=== PATIENT | female | born 1985 | race Caucasian/White ===

== ENCOUNTER 2016-12-10 18:51 | Inpatient (IN) | payer OTHER ==
[~2016-12-10] VITALS: Ht 177.8 cm; Wt 121.1 kg
[~2016-12-10 18:51] MED LIST: BACTRIM,SEPT1 TABLET PO; CLEOCIN300 MG PO; ENBREL50 MG/1 ML SC; FLAGYL500 MG PO; KEFLEX500 MG PO; MOTRIN800 MG PO; NAPROSYN500 MG PO; NOHOMEMEDS; PERCOCET 5/31 TABLET PO; PERCOCET 7.51 TABLET PO; ZOFRAN ODT4 MG PO
[2016-12-10 19:32] LABS: EOSINOPHIL COUNT 0.1 K/uL (0-0.3); HEMATOCRIT 43.3 % (36.0-46.0); IMMATURE GRANULOCYTE (%) 0.2 % (0.0-0.7); IMMATURE GRANULOCYTE COUNT 0.2 K/uL; LYMPHOCYTE COUNT 2.5 K/uL (1.0-2.8); MCH 29.8 PG (29.0-34.0); MCHC 33.9 G/DL (30.0-36.0); MCV 87.7 FL (83-99); MEAN PLAT.VOLUME 9.9 uM^3 (9.5-12.4); MONOCYTE (%) 7.5 % (3-12); MONOCYTE COUNT 0.8 K/uL (0-0.8); NEUTROPHIL (%) 66.1 % (45-76); NEUTROPHIL COUNT 6.6 K/uL (1.8-6.4); PLATELET COUNT 261 K/uL (156-360); RBC DIS.WIDTH-CV 13.8 % (11.8-14.6); RBC DIS.WIDTH-SD 43.4 % (39-53); RED BLOOD COUNT 4.94 M/uL (3.80-5.20)
[2016-12-10 19:40] LABS: CHLORIDE 106 mEq/L (99-109); POTASSIUM 3.9 mEq/L (3.7-5.4); SODIUM 140 mEq/L (136-147)
[2016-12-10 19:42] LABS: GLUCOSE 117 mg/dL (70-99)
[2016-12-10 19:43] LABS: ANION GAP 11 MEQ/L (2-14)
[2016-12-10 19:44] LABS: TOTAL BILIRUBIN 0.4 mg/dL (0.0-1.0)
[2016-12-10 19:46] LABS: ALKALINE PHOSPHATASE 89 IU/L (3-129); D-DIMER ELISA 1.69 mg/L FEU (< 0.57); GFR ESTIMATE (CALCULATED) > 59 mL/min/
[2016-12-10 19:47] LABS: UREA NITROGEN (BUN) 13 mg/dL (9-23)
[2016-12-10 19:49] LABS: LIPASE 14 U/L (1.0-51.0)
[2016-12-10 19:57] LABS: QUANTITATIVE HCG < 4.0 MIU/ML; TROP-I INTERPRETATION NEGATIVE; TROPONIN-I < 0.01 ng/mL (0.0-0.30)
[2016-12-10 23:44] LABS: ADD MIUA? YES; BILIRUBIN NEGATIVE; BLOOD SMALL; COLOR YELLOW ((YELLOW)); GLUCOSE (STRIP) NEGATIVE; KETONES 5; LEUKOCYTES NEGATIVE; NITRITE NEGATIVE; PROTEIN (STRIP) 30; UROBILINOGEN 0.2 MG/DL (0.2-1.0)
[2016-12-10 23:48] LABS: BACTERIA NONE SEEN /HPF; EPITHELIAL CELLS 1+ /HPF; MUCUS TRACE /LPF; RED BLOOD CELLS 0-5 /HPF (0-5); UCUL ADDED? NO; WHITE BLOOD CELLS 0-5 /HPF (0-5)
[2016-12-10 23:57] LABS: AMPHETAMINE NEGATIVE (500 ng/mL); BARBITURATES NEGATIVE (200 ng/mL); BENZODIAZEPINES NEGATIVE (150 ng/mL); COCAINE NEGATIVE (150 ng/mL); INTERNAL CONTROLS VALID? YES; METHADONE PRESUMPTIVE POSITIVE (200 ng/mL); METHAMPHETAMINE NEGATIVE (500 ng/mL); OPIATES (MORPHINE) NEGATIVE (100 ng/mL); OXYCODONE NEGATIVE (100 ng/mL); PHENCYCLIDINE NEGATIVE (25 ng/mL); PROPOXYPHENE NEGATIVE (300 ng/mL); THC CANNABINOIDS NEGATIVE (50 ng/mL); TRICYCLIC ANTIDEPRESSANTS NEGATIVE (300 ng/mL)
[2016-12-11] VITALS (7 sets, daily range): BP systolic 116–144; BP diastolic 62–89
[2016-12-11] MEDS ORDERED: MOBIC15 MG PO (00:07)
[2016-12-11] MEDS ORDERED: TRIAMCINOLONE A15 GM TP (00:08)
[2016-12-11] MEDS ORDERED: CLOBETASOL PROP60 GM TP (00:08)
[2016-12-11] MEDS ORDERED: METHADONE 22 MG/1 ML PO (00:09)
[2016-12-11 00:17] LABS: INFLUENZA A VIRAL ANTIGEN NEGATIVE; INFLUENZA B VIRAL ANTIGEN NEGATIVE
[2016-12-11 00:42] LABS: BASE EXCESS -0.8 mEq/L (-3 to +3); BICARBONATE 23.5 mEq/L (22-26); CARBOXY HGB 2.6 % (0-5); COMMENTS - BLOOD GASES A+C+; DEVICE HHFNC; FI02 100 %; METHEMOGLOBIN 1.2 % (0-1.5); O2 FLOW 30 L/MIN; PCO2 37 mm Hg (35-45); PO2 208 mm Hg (80-100); SITE LR; pH 7.41 (7.35-7.45)
[2016-12-11 02:00] LABS: MAGNESIUM 2.2 mg/dL (1.3-2.7)
[2016-12-11 08:09] LABS: ANION GAP 10 MEQ/L (2-14); CHLORIDE 102 MEQ/L (99-109); GFR ESTIMATE (CALCULATED) > 59 mL/min/; GLUCOSE 118 mg/dL (70-99); MAGNESIUM 1.9 mg/dl (1.3-2.7); POTASSIUM 3.6 MEQ/L (3.7-5.4); SAMPLE HEMOLYSIS CHECK 0; SAMPLE ICTERIC CHECK 0; SAMPLE LIPEMIA CHECK 0; SODIUM 137 MEQ/L (136-147); UREA NITROGEN (BUN) 8 mg/dL (9-23)
[2016-12-11 09:39] LABS: TROP-I INTERPRETATION NEGATIVE; TROPONIN-I < 0.01 ng/mL (0.0-0.30)
[2016-12-12] VITALS (7 sets, daily range): BP systolic 112–141; BP diastolic 62–89
[2016-12-12 09:36] LABS: HEMATOCRIT 45.3 % (36.0-46.0); MCH 28.6 PG (29.0-34.0); MCHC 31.8 G/DL (30.0-36.0); MCV 90.1 FL (83-99); MEAN PLAT.VOLUME 9.7 uM^3 (9.5-12.4); PLATELET COUNT 246 K/uL (156-360); RBC DIS.WIDTH-SD 45.4 % (39-53); RED BLOOD COUNT 5.03 M/uL (3.80-5.20)
[2016-12-12 10:25] LABS: ANION GAP 9 MEQ/L (2-14); CHLORIDE 101 MEQ/L (99-109); GFR ESTIMATE (CALCULATED) > 59 mL/min/; GLUCOSE 142 mg/dL (70-99); SAMPLE HEMOLYSIS CHECK 0; SAMPLE ICTERIC CHECK 0; SAMPLE LIPEMIA CHECK 0; SODIUM 139 MEQ/L (136-147); UREA NITROGEN (BUN) 12 mg/dL (9-23)
[2016-12-13 03:30] VITALS: BP 117/69
[2016-12-13 06:43] LABS: HEMATOCRIT 45.5 % (36.0-46.0); MCH 30.3 PG (29.0-34.0); MCHC 33.4 G/DL (30.0-36.0); MCV 90.8 FL (83-99); PLATELET COUNT 251 K/uL (156-360); RBC DIS.WIDTH-CV 13.9 % (11.8-14.6); RBC DIS.WIDTH-SD 45.6 % (39-53); RED BLOOD COUNT 5.01 M/uL (3.80-5.20); WHITE BLOOD COUNT 7.6 K/uL (4.1-10.2)
[2016-12-13 07:07] LABS: ANION GAP 10 MEQ/L (2-14); CHLORIDE 101 MEQ/L (99-109); GFR ESTIMATE (CALCULATED) > 59 mL/min/; GLUCOSE 122 mg/dL (70-99); POTASSIUM 4.3 MEQ/L (3.7-5.4); SAMPLE HEMOLYSIS CHECK 0; SAMPLE ICTERIC CHECK 0; SAMPLE LIPEMIA CHECK 0; SODIUM 138 MEQ/L (136-147); UREA NITROGEN (BUN) 17 mg/dL (9-23)
[2016-12-13 07:13] VITALS: BP 132/82
[2016-12-13 11:57] VITALS: BP 110/81
[2016-12-13 16:10] VITALS: BP 119/50
[2016-12-13 20:29] VITALS: BP 120/82
[2016-12-14] VITALS (7 sets, daily range): BP systolic 106–125; BP diastolic 65–83
[2016-12-14 07:22] LABS: ANION GAP 6 MEQ/L (2-14); CHLORIDE 99 MEQ/L (99-109); GFR ESTIMATE (CALCULATED) > 59 mL/min/; GLUCOSE 119 mg/dL (70-99); POTASSIUM 4.5 MEQ/L (3.7-5.4); SAMPLE HEMOLYSIS CHECK 0; SAMPLE ICTERIC CHECK 0; SAMPLE LIPEMIA CHECK 0; SODIUM 137 MEQ/L (136-147); UREA NITROGEN (BUN) 17 mg/dL (9-23)
[2016-12-14 07:24] LABS: HEMATOCRIT 50.3 % (36.0-46.0); MCH 29.3 PG (29.0-34.0); MCHC 32.4 G/DL (30.0-36.0); MCV 90.3 FL (83-99); MEAN PLAT.VOLUME 9.8 uM^3 (9.5-12.4); PLATELET COUNT 287 K/uL (156-360); RBC DIS.WIDTH-CV 13.8 % (11.8-14.6); RBC DIS.WIDTH-SD 45.2 % (39-53); RED BLOOD COUNT 5.57 M/uL (3.80-5.20); WHITE BLOOD COUNT 10.8 K/uL (4.1-10.2)
[2016-12-15 03:57] VITALS: BP 108/65
[2016-12-15 06:48] LABS: HEMATOCRIT 50.7 % (36.0-46.0); MCH 28.9 PG (29.0-34.0); MCV 90.5 FL (83-99); RBC DIS.WIDTH-CV 13.8 % (11.8-14.6); RBC DIS.WIDTH-SD 45.2 % (39-53); WHITE BLOOD COUNT 10.3 K/uL (4.1-10.2)
[2016-12-15 07:13] LABS: ANION GAP 11 MEQ/L (2-14); CHLORIDE 101 MEQ/L (99-109); GFR ESTIMATE (CALCULATED) > 59 mL/min/; GLUCOSE 129 mg/dL (70-99); POTASSIUM 4.5 MEQ/L (3.7-5.4); SAMPLE HEMOLYSIS CHECK 0; SAMPLE ICTERIC CHECK 0; SAMPLE LIPEMIA CHECK 0; SODIUM 139 MEQ/L (136-147); UREA NITROGEN (BUN) 16 mg/dL (9-23)
[2016-12-15 08:54] LABS: PLATELET COUNT UNABLE TO REPORT K/uL (156-360)
[2016-12-15 09:14] VITALS: BP 128/81
[2016-12-15 14:00] VITALS: BP 108/54
[2016-12-15 16:02] VITALS: BP 128/85
[2016-12-15 19:30] VITALS: BP 136/95
[2016-12-15 23:53] VITALS: BP 113/71
[2016-12-16 04:18] VITALS: BP 118/68
[2016-12-16 09:15] VITALS: BP 169/104
[2016-12-16 09:23] LABS: ANION GAP 9 MEQ/L (2-14); CHLORIDE 101 MEQ/L (99-109); GFR ESTIMATE (CALCULATED) > 59 mL/min/; GLUCOSE 118 mg/dL (70-99); POTASSIUM 4.7 MEQ/L (3.7-5.4); SAMPLE HEMOLYSIS CHECK 0; SAMPLE ICTERIC CHECK 0; SAMPLE LIPEMIA CHECK 0; SODIUM 138 MEQ/L (136-147); UREA NITROGEN (BUN) 14 mg/dL (9-23)
[2016-12-16 11:11] VITALS: BP 130/78
[2016-12-16 16:20] VITALS: BP 135/69
[2016-12-16 19:17] VITALS: BP 119/75
[2016-12-16 23:28] VITALS: BP 100/65
[2016-12-17 04:20] VITALS: BP 96/55
[2016-12-17 07:25] VITALS: BP 112/72
[2016-12-17] MEDS ORDERED: NICOTINE PATCH1 EAC2 TD (09:28)
[2016-12-17] MEDS ORDERED: LISINOPRIL10 MG PO (09:28)
[2016-12-17] MEDS ORDERED: ELIQUIS5 MG PO (09:28)
[2016-12-17] MEDS ORDERED: DIGOXIN250 MCG PO (09:28)
[2016-12-17] MEDS ORDERED: CARVEDILOL25 MG PO (09:28)
[2016-12-17] MEDS ORDERED: K-DUR10 MEQ PO (09:30)
[2016-12-17] MEDS ORDERED: FUROSEMIDE40 MG PO (09:30)
== END 2016-12-17 13:59 | disposition home or self-care (01) | DRG 286 ==
LOC: EME 18:51 → EDOF 12-11 00:37 → 4EAST 12-11 00:37
PROVIDERS: Hospitalist; Internal Medicine Cardiovascular Disease; Physician Assistant; Physician Assistant Medical
PROC: 4A023N7 Measurement of Cardiac Sampling and Pressure, Left Heart, Percutaneous Approach (ICD-10-PCS; principal; 2016-12-15)
PROC: B2151ZZ Fluoroscopy of Left Heart using Low Osmolar Contrast (ICD-10-PCS; principal; 2016-12-15)
PROC: B2111ZZ Fluoroscopy of Multiple Coronary Arteries using Low Osmolar Contrast (ICD-10-PCS; principal; 2016-12-15)
DX: I48.91 Unspecified atrial fibrillation (principal); I50.21 Acute systolic (congestive) heart failure; J96.01 Acute respiratory failure with hypoxia; I42.9 Cardiomyopathy, unspecified; F11.20 Opioid dependence, uncomplicated; G47.33 Obstructive sleep apnea (adult) (pediatric); I27.2 Other secondary pulmonary hypertension; I34.0 Nonrheumatic mitral (valve) insufficiency; I36.1 Nonrheumatic tricuspid (valve) insufficiency; L40.9 Psoriasis, unspecified; F17.210 Nicotine dependence, cigarettes, uncomplicated; G89.29 Other chronic pain; E66.9 Obesity, unspecified; Z68.41 Body mass index [BMI] 40.0-44.9, adult
CPT/HCPCS: 36600; 71010; 71275; 80048; 80053; 81003; 82803; 83605; 83690; 83735; 83880; 84443; 84484; 84702; 85025; 85027; 85379; 87040; 87502; 93005; 93306; 94640; 94760; 94799; 99202; 99281; 99285; C1769; C1887; J0696; J1160; J1644; J1650; J1940; J2250; J2405; J3010; J7030; J7040; J7050

== ENCOUNTER 2017-02-12 09:32 | Day surgery (SDC) | payer OTHER ==
[~2017-02-12] VITALS: Ht 177.8 cm; Wt 120.2 kg
[~2017-02-12 09:32] MED LIST changes: +CARVEDILOL25 MG PO; +CLOBETASOL PROP60 GM TP; +COREG25 M1 PO; +DIGOXIN250 MCG PO; +ELIQUIS5 MG PO; +FUROSEMIDE40 MG PO; +K-DUR10 MEQ PO; +KENALOG,ARISTOC15 GM TP; +LANOXIN250 MCG PO; +LASIX40 MG PO; +LISINOPRIL10 MG PO; +METHADONE 22 MG/1 ML PO; +METHADONE10 MG/1 M1 PO; +MOBIC15 MG PO; +NICOTINE PATCH1 EAC2 TD; +POTASSIUM CHLO10 ME3 PO; +TEMOVATE 0.05%30 GM TP; +TRIAMCINOLONE A15 GM TP; +XARELTO20 MG PO
== END 2017-02-12 11:55 | disposition home or self-care (01) ==
LOC: CATH 09:32
PROC: 5A2204Z Restoration of Cardiac Rhythm, Single (ICD-10-PCS; principal; 2017-02-12)
DX: I48.1 Persistent atrial fibrillation (principal); I42.0 Dilated cardiomyopathy; I34.0 Nonrheumatic mitral (valve) insufficiency; I36.1 Nonrheumatic tricuspid (valve) insufficiency; F17.200 Nicotine dependence, unspecified, uncomplicated; Z68.38 Body mass index [BMI] 38.0-38.9, adult; Z79.01 Long term (current) use of anticoagulants
CPT/HCPCS: 93005

== ENCOUNTER 2017-03-17 13:08 | Observation (INO) | payer OTHER ==
[~2017-03-17] VITALS: Ht 177.8 cm; Wt 109.0 kg
[2017-03-17 14:09] LABS: HEMATOCRIT 40.4 % (36.0-46.0); MCH 29.9 PG (29.0-34.0); MCHC 33.9 G/DL (30.0-36.0); MCV 88.2 FL (83-99); MEAN PLAT.VOLUME 9.3 uM^3 (9.5-12.4); PLATELET COUNT 318 K/uL (156-360); RED BLOOD COUNT 4.58 M/uL (3.80-5.20); WHITE BLOOD COUNT 10.3 K/uL (4.1-10.2)
[2017-03-17 14:19] LABS: INTER. NORMALIZED RATIO 1.3; PROTHROMBIN TIME 12.8 (9.2-11.2); PTT 36.3 (25-32)
[2017-03-17 14:22] LABS: CHLORIDE 101 mEq/L (99-109); POTASSIUM 3.8 mEq/L (3.7-5.4); SODIUM 138 mEq/L (136-147)
[2017-03-17 14:24] LABS: GLUCOSE 156 mg/dL (70-99)
[2017-03-17 14:25] LABS: ANION GAP 10 MEQ/L (2-14)
[2017-03-17 14:28] LABS: GFR ESTIMATE (CALCULATED) > 59 mL/min/
[2017-03-17 14:29] LABS: UREA NITROGEN (BUN) 12 mg/dL (9-23)
[2017-03-17 14:35] LABS: TROP-I INTERPRETATION NEGATIVE; TROPONIN-I < 0.01 ng/mL (0.0-0.30)
[2017-03-17 14:36] LABS: QUANTITATIVE HCG < 4.0 MIU/ML
[2017-03-17 15:46] LABS: DIGOXIN < 0.3 ng/mL (0.8-2.0)
[2017-03-17 20:30] VITALS: BP 123/87
[2017-03-17 21:26] LABS: TROP-I INTERPRETATION NEGATIVE; TROPONIN-I < 0.01 ng/mL (0.0-0.30)
[2017-03-17 22:30] VITALS: BP 113/70
[2017-03-18 02:35] LABS: HEMATOCRIT 35.3 % (36.0-46.0); MCH 30.3 PG (29.0-34.0); MCHC 34.3 G/DL (30.0-36.0); MCV 88.5 FL (83-99); MEAN PLAT.VOLUME 9.2 uM^3 (9.5-12.4); PLATELET COUNT 254 K/uL (156-360); RBC DIS.WIDTH-CV 13.2 % (11.8-14.6); RBC DIS.WIDTH-SD 43.5 % (39-53); RED BLOOD COUNT 3.99 M/uL (3.80-5.20); WHITE BLOOD COUNT 7.9 K/uL (4.1-10.2)
[2017-03-18 02:44] LABS: CHLORIDE 104 mEq/L (99-109); POTASSIUM 3.8 mEq/L (3.7-5.4); SODIUM 138 mEq/L (136-147)
[2017-03-18 02:47] LABS: ANION GAP 5 MEQ/L (2-14)
[2017-03-18 02:49] LABS: GLUCOSE 115 mg/dL (70-99)
[2017-03-18 02:50] LABS: GFR ESTIMATE (CALCULATED) > 59 mL/min/
[2017-03-18 02:51] LABS: UREA NITROGEN (BUN) 11 mg/dL (9-23)
[2017-03-18 02:58] LABS: TROP-I INTERPRETATION NEGATIVE; TROPONIN-I < 0.01 ng/mL (0.0-0.30)
[2017-03-18 04:45] VITALS: BP 121/76
[2017-03-18 07:44] VITALS: BP 117/72
[2017-03-18 11:28] VITALS: BP 110/56
[2017-03-18] MEDS ORDERED: CORDARONE200 MG PO (14:01)
[2017-03-18] MEDS ORDERED: DIGOXIN125 MCG PO (14:01)
== END 2017-03-18 15:15 | disposition home or self-care (01) ==
LOC: EME 13:08 → 4EAST 18:36 → EDOF 18:36 → 4EAST 18:36
PROVIDERS: Emergency Medicine; Hospitalist; Physician Assistant
PROC: 5A2204Z Restoration of Cardiac Rhythm, Single (ICD-10-PCS; principal; 2017-03-17)
DX: I48.0 Paroxysmal atrial fibrillation (principal); Z87.891 Personal history of nicotine dependence; I42.9 Cardiomyopathy, unspecified; Z79.01 Long term (current) use of anticoagulants; I50.22 Chronic systolic (congestive) heart failure; G89.4 Chronic pain syndrome; E66.01 Morbid (severe) obesity due to excess calories; I08.1 Rheumatic disorders of both mitral and tricuspid valves; I27.2 Other secondary pulmonary hypertension; L40.50 Arthropathic psoriasis, unspecified; F11.20 Opioid dependence, uncomplicated; Z88.7 Allergy status to serum and vaccine; Z68.34 Body mass index [BMI] 34.0-34.9, adult
CPT/HCPCS: 71010; 80048; 80162; 83880; 84443; 84484; 84702; 85027; 85610; 85730; 93005; 93306; 99281; 99285; G0378; J1160; J7030